=== PATIENT | male | born 1985 | race Caucasian/White ===

== ENCOUNTER 2023-03-05 18:26 | Observation (INO) | payer BC ==
[~2023-03-05] VITALS: Ht 167.6 cm; Wt 60.2 kg
[2023-03-05 18:32] VITALS: BP 126/84
[2023-03-05] MEDS ORDERED: VIT C/ACEROL500 M1 PO (18:35)
[2023-03-05] MEDS ORDERED: OLANZAPINE2.5 MG PO (18:36)
[2023-03-05] MEDS ORDERED: LISINOPRIL5 MG PO (18:36)
[2023-03-05] MEDS ORDERED: BUPRENORPHIN2 MG SL (18:37)
[2023-03-05] MEDS ORDERED: PAXLOVID PO (18:38)
[2023-03-05] MEDS ORDERED: INDERAL 20MG TA20 MG PO (18:38)
[2023-03-05] MEDS ORDERED: NARCAN4 MG/0.1 M (18:39)
[2023-03-05 18:45] VITALS: BP 113/83
[2023-03-05 19:00] VITALS: BP 122/67
[2023-03-05 19:05] LABS: BASO% 0.3 % (0-3); EOS% 0.2 % (0-8); HEMATOCRIT 36.7 % (39.0-50.0); HEMOGLOBIN 12.2 g/dl (14.0-18.0); IMMATURE GRANULOCYTES 0.1 % (0.0-5.0); LYMPH% 9.9 % (15-41); MEAN CELL VOLUME 96.3 fL CALC (80.0-100.0); MEAN CORPUSCULAR HGB CONC 33.2 g/dL CAL (32.0-36.0); MONO% 14.2 % (2-13); NEUT# 8.75 thou/uL (1.82-7.42); NEUT% 75.3 % (42-76); RED BLOOD COUNT 3.81 mill/uL (4.70-6.10); RED CELL DISTRI WIDTH 11.7 % (11.5-15.5)
[2023-03-05 19:15] VITALS: BP 128/85
[2023-03-05 19:16] LABS: ALBUMIN 4.2 g/dL (3.2-5.0); BILIRUBIN, TOTAL 0.5 mg/dL (0.2-1.3); CREATININE 1.9 mg/dL (0.7-1.3); POTASSIUM 5.3 mmol/l (3.5-5.1); TOTAL PROTEIN 6.6 g/dL (6.3-8.2)
[2023-03-05 19:35] VITALS: BP 126/72
[2023-03-06 05:20] VITALS: BP 110/74
[2023-03-06 05:55] LABS: BASO% 0.4 % (0-3); EOS% 0.9 % (0-8); HEMATOCRIT 39.2 % (39.0-50.0); HEMOGLOBIN 13.2 g/dl (14.0-18.0); IMMATURE GRANULOCYTES 0.1 % (0.0-5.0); LYMPH% 31.5 % (15-41); MEAN CELL VOLUME 96.6 fL CALC (80.0-100.0); MEAN CORPUSCULAR HGB 32.5 pG CALC (26.0-32.0); MEAN CORPUSCULAR HGB CONC 33.7 g/dL CAL (32.0-36.0); MONO% 12.2 % (2-13); NEUT# 4.67 thou/uL (1.82-7.42); NEUT% 54.9 % (42-76); RED BLOOD COUNT 4.06 mill/uL (4.70-6.10); RED CELL DISTRI WIDTH 11.7 % (11.5-15.5)
[2023-03-06 06:37] LABS: ALBUMIN 4.4 g/dL (3.2-5.0); ALKALINE PHOSPHATASE 56 u/l (38-126); ANION GAP 12 (6-22 (CALC)); BILIRUBIN, TOTAL 0.4 mg/dL (0.2-1.3); BUN 23 mg/dL (9-20); BUN/CREATININE RATIO 20 (12-20 (CALC)); CARBON DIOXIDE 26 mmol/l (22-30); CHLORIDE 106 mmol/l (95-108); CPK 1328 u/l (55-170); CREATININE 1.1 mg/dL (0.7-1.3); GFR FOR AFR.AMER. > 60 ML/MIN (>=60 (CALC)); GFR OTHER RACES > 60 ML/MIN (>=60 (CALC)); POTASSIUM 4.7 mmol/l (3.5-5.1); SGOT/AST 45 u/l (17-59); SODIUM 140 mmol/l (137-146); TOTAL PROTEIN 7.1 g/dL (6.3-8.2)
[2023-03-06 07:33] VITALS: BP 127/78
== END 2023-03-06 11:37 | disposition home or self-care (01) | DRG 641 ==
LOC: ED 18:26 → MS2 20:07
PROVIDERS: Nurse Practitioner; ADMIT Internal Medicine; ATTEND Internal Medicine
DX: E86.0 Dehydration (principal); N17.9 Acute kidney failure, unspecified; M62.82 Rhabdomyolysis; I10 Essential (primary) hypertension; F99 Mental disorder, not otherwise specified; S90.822A Blister (nonthermal), left foot, initial encounter; S90.821A Blister (nonthermal), right foot, initial encounter; X58.XXXA Exposure to other specified factors, initial encounter
CPT/HCPCS: G0378